=== PATIENT | male | born 1980 | race African-American/Black ===

== ENCOUNTER 2017-10-18 15:20 | Emergency (ER) | payer MEDICAID, OTHER ==
[~2017-10-18] VITALS: Ht 188 cm; Wt 85.0 kg
[2017-10-18 15:25] VITALS: BP 147/106
[2017-10-18] MEDS ORDERED: LIDOCAINE 1%, 20ML SQ ONE (16:00)
[2017-10-18] MEDS ORDERED: LIDOCAINE 1%, 20ML ONE (16:34)
== END 2017-10-18 17:38 | disposition home or self-care (01) ==
LOC: ED 17:05
DX: L02.214 Cutaneous abscess of groin (principal); I10 Essential (primary) hypertension
CPT/HCPCS: 10060; 56405; 99283; 99284